=== PATIENT | male | born 1935 ===

== ENCOUNTER 2024-12-23 10:15 | Outpatient (RCR) | payer OTHER, SELFPAY ==
[2024-10-10] VITALS (7 sets, daily range): BP systolic 93–112; BP diastolic 49–64; PULSE 81–99; RESP 16–20; TEMP 36.3–36.9; O2SAT 96–98
[2024-12-23 10:34] VITALS: BP 114/66; PULSE 93; RESP 22; TEMP 36.7; O2SAT 95
[2024-12-23 10:53] VITALS: BP 103/61; PULSE 61; RESP 16; TEMP 36.4; O2SAT 96
[2024-12-23 11:23] VITALS: BP 109/58; PULSE 83; RESP 16; TEMP 36.8; O2SAT 97
[2024-12-23 12:25] VITALS: BP 114/51; PULSE 84; RESP 16; TEMP 36.6; O2SAT 97
[2024-12-23 13:01] VITALS: BP 129/68; PULSE 81; RESP 18; TEMP 36.6; O2SAT 97
== END 2025-04-07 23:59 | disposition home or self-care (01) ==
LOC: CCIC 10:15
PROVIDERS: Referring Provider Internal Medicine Hematology & Oncology; Visit Provider Clinical Nurse Specialist
DX: D46.9 Myelodysplastic syndrome, unspecified (principal)
CPT/HCPCS: 36415; 36430; 86850; 86900; 86901; 86922; T1013; P9016